=== PATIENT | male | born 1960 | race Caucasian/White ===

== ENCOUNTER 2017-07-22 07:52 | Outpatient (CLI) | payer OTHER ==
[~2017-07-22 07:52] MED LIST: LANTUS SUBCUT; LISI30TA4 PO; METF500T7 PO; MULT1TAB74 PO; SIMV20TA5 PO
[2017-07-22 08:37] LABS: BASOPHILS % (AUTO) 0.7 % (0-1); EOSINOPHILS # (AUTO) 0.2 X10'3 (0-0.9); EOSINOPHILS % (AUTO) 3.6 % (0-6); HEMATOCRIT 46.1 % (42.0-52.0); LYMPHOCYTES # (AUTO) 2.1 X10'3 (1.1-4.8); LYMPHOCYTES % (AUTO) 35.1 % (21-51); MEAN CORPUSCULAR HEMOGLOBIN 31.5 PG (27.0-31.0); MEAN CORPUSCULAR HGB CONC 34.7 % (33.0-36.5); MEAN CORPUSCULAR VOLUME 90.8 FL (78-98); MEAN PLATELET VOLUME 8.1 FL (7.4-10.4); MONOCYTES # (AUTO) 0.5 X10'3 (0-0.9); MONOCYTES % (AUTO) 8.2 % (2-12); NEUTROPHILS # (AUTO) 3.2 X10'3 (1.8-7.7); NEUTROPHILS % (AUTO) 52.4 % (42-75); PLATELET COUNT 205 X10'3 (140-440); RED BLOOD COUNT 5.07 X10'6 (4.70-6.10); WHITE BLOOD COUNT 6.1 X10'3 (4.5-11.0)
[2017-07-22 08:44] LABS: HEMOGLOBIN A1C 6.2 % (4.5-6.2)
[2017-07-22 08:58] LABS: ALANINE AMINOTRANSFERASE 39 U/L (12-78); ALBUMIN 3.8 G/DL (3.4-5.0); ALKALINE PHOSPHATASE 68 IU/L (46-116); ANION GAP 10 (8-16); ASPARTATE AMINO TRANSFERASE 24 U/L (10-37); BILIRUBIN,TOTAL 0.7 MG/DL (0.1-1.0); BLOOD UREA NITROGEN 20 MG/DL (7-18); BUN/CREATININE RATIO 15.5 (5.4-32.0); CALCIUM 9.4 MG/DL (8.5-10.1); CHLORIDE 106 MMOL/L (99-107); CHOL/HDL RATIO 5.9 (0.00-4.99); CHOLESTEROL 254 MG/DL (0-200); CREATININE 1.29 MG/DL (0.60-1.10); GLUCOSE 100 MG/DL (70-104); HDL CHOLESTEROL 43 MG/DL (35-60); LDL CHOLESTEROL 180 MG/DL (50-100); POTASSIUM 4.6 MMOL/L (3.5-5.1); SODIUM 143 MMOL/L (135-145); TOTAL PROTEIN 7.5 G/DL (6.4-8.2); TRIGLYCERIDES 149 MG/DL (20-135); eGFR 57 ML/MIN
[2017-07-23 13:30] LABS: MICROALB/CRT, RATIO <1.8 mg/g creat (0.0-30.0)
== END 2017-07-22 23:59 | disposition home or self-care (01) ==
LOC: LAB 07:52
PROVIDERS: ATTEND Physician Assistant
DX: E11.9 Type 2 diabetes mellitus without complications (principal); E78.5 Hyperlipidemia, unspecified; M54.5 Low back pain; I10 Essential (primary) hypertension
CPT/HCPCS: 36415; 80053; 80061; 82043; 82570; 83036; 84443; 85025

== ENCOUNTER 2017-10-17 08:46 | Emergency (ER) | payer OTHER ==
[~2017-10-17] VITALS: Ht 190.5 cm; Wt 116.9 kg
[2017-10-17 08:50] VITALS: BP 121/84
[2017-10-17] MEDS ORDERED: CEPH500C5 PO (10:34)
[2017-10-17] MEDS ORDERED: BACDS PO (10:34)
== END 2017-10-17 11:00 | disposition home or self-care (01) ==
LOC: ER 08:47
DX: L03.113 Cellulitis of right upper limb (principal); I10 Essential (primary) hypertension; E11.9 Type 2 diabetes mellitus without complications; E78.00 Pure hypercholesterolemia, unspecified; Z79.4 Long term (current) use of insulin; Z79.84 Long term (current) use of oral hypoglycemic drugs; Z79.899 Other long term (current) drug therapy
CPT/HCPCS: 99283

== ENCOUNTER 2017-10-23 07:43 | Outpatient (CLI) | payer OTHER ==
[~2017-10-23 07:43] MED LIST changes: +BACDS PO; +CEPH500C5 PO
[2017-10-23 08:21] LABS: CHOLESTEROL 149 MG/DL (0-200); HDL CHOLESTEROL 37 MG/DL (35-60); LDL CHOLESTEROL 82 MG/DL (50-100); TRIGLYCERIDES 236 MG/DL (20-135)
[2017-10-23 08:33] LABS: HEMOGLOBIN A1C 5.5 % (4.5-6.2)
== END 2017-10-23 23:59 | disposition home or self-care (01) ==
LOC: LAB 07:43
PROVIDERS: ATTEND Physician Assistant
DX: Z12.5 Encounter for screening for malignant neoplasm of prostate (principal); E11.9 Type 2 diabetes mellitus without complications; E78.5 Hyperlipidemia, unspecified; I10 Essential (primary) hypertension
CPT/HCPCS: 36415; 80061; 83036; 84153; 84154

== ENCOUNTER 2017-11-20 17:02 | Emergency (ER) | payer OTHER ==
[~2017-11-20] VITALS: Ht 190.5 cm; Wt 113.6 kg
[~2017-11-20 17:02] MED LIST changes: -BACDS PO
[2017-11-20 17:10] VITALS: BP 136/77
[2017-11-20] MEDS ORDERED: AMOX-422 PO (17:42)
[2017-11-20] MEDS ORDERED: amox tr/potassium clavulanate 875/125mg TAB PO ONE (17:45)
== END 2017-11-20 17:58 | disposition home or self-care (01) ==
LOC: ER 17:02
DX: L03.113 Cellulitis of right upper limb (principal); L03.114 Cellulitis of left upper limb; E78.00 Pure hypercholesterolemia, unspecified; I10 Essential (primary) hypertension; E11.9 Type 2 diabetes mellitus without complications; Z79.4 Long term (current) use of insulin; Z79.84 Long term (current) use of oral hypoglycemic drugs; Z79.899 Other long term (current) drug therapy
CPT/HCPCS: 99283

== ENCOUNTER 2018-01-06 07:53 | Day surgery (SDC) | payer OTHER ==
[~2018-01-06] VITALS: Ht 190.5 cm; Wt 113.6 kg
[2018-01-06 07:50] VITALS: BP 139/87
[2018-01-06 08:05] VITALS: BP 134/84
[2018-01-06] MEDS ORDERED: fentaNYL/PF 50MCG/1 ML 2ML syringe ONE (08:08)
[2018-01-06] MEDS ORDERED: MIDAZolam 5mg/5ml vial ONE (08:08)
[2018-01-06] MEDS ORDERED: METF-436 PO (08:12)
[2018-01-06] MEDS ORDERED: INSU100V9 SQ (08:44)
[2018-01-06 10:08] VITALS: BP 121/60
[2018-01-06 10:18] VITALS: BP 107/62
[2018-01-06 10:28] VITALS: BP 111/72
[2018-01-06 10:35] VITALS: BP 112/65
== END 2018-01-06 10:38 | disposition home or self-care (01) ==
LOC: GI LAB 07:53
PROVIDERS: ATTEND Internal Medicine Gastroenterology
DX: Z12.11 Encounter for screening for malignant neoplasm of colon (principal); D12.4 Benign neoplasm of descending colon; D12.3 Benign neoplasm of transverse colon; K64.8 Other hemorrhoids; I10 Essential (primary) hypertension; E11.9 Type 2 diabetes mellitus without complications; Z86.010 Personal history of colon polyps; Z79.4 Long term (current) use of insulin; Z79.84 Long term (current) use of oral hypoglycemic drugs; Z79.899 Other long term (current) drug therapy; Z98.890 Other specified postprocedural states; Z81.8 Family history of other mental and behavioral disorders
CPT/HCPCS: 45380; 45385; 99152; 99153; J2250; J3010; J7030; A4620

== ENCOUNTER 2018-01-24 11:53 | Outpatient (CLI) | payer OTHER ==
[~2018-01-24 11:53] MED LIST changes: -CEPH500C5 PO; +INSU100V9 SQ; -LANTUS SUBCUT; +METF-436 PO; -METF500T7 PO
[2018-01-24 12:52] LABS: BASOPHILS % (AUTO) 0.5 % (0-1); EOSINOPHILS # (AUTO) 0.2 X10'3 (0-0.9); EOSINOPHILS % (AUTO) 3.1 % (0-6); HEMATOCRIT 47.6 % (42.0-52.0); HEMOGLOBIN 15.8 g/dl (14.0-17.9); LYMPHOCYTES # (AUTO) 2.1 X10'3 (1.1-4.8); LYMPHOCYTES % (AUTO) 30.6 % (21-51); MEAN CORPUSCULAR HGB CONC 33.2 % (33.0-36.5); MEAN CORPUSCULAR VOLUME 93.4 FL (78-98); MEAN PLATELET VOLUME 8.3 FL (7.4-10.4); MONOCYTES # (AUTO) 0.5 X10'3 (0-0.9); MONOCYTES % (AUTO) 7.4 % (2-12); NEUTROPHILS # (AUTO) 3.9 X10'3 (1.8-7.7); NEUTROPHILS % (AUTO) 58.4 % (42-75); PLATELET COUNT 228 X10'3 (140-440); RED BLOOD COUNT 5.09 X10'6 (4.70-6.10); RED CELL DISTRIBUTION WIDTH 13.1 % (11.5-14.5); WHITE BLOOD COUNT 6.7 X10'3 (4.5-11.0)
[2018-01-24 13:14] LABS: HEMOGLOBIN A1C 5.8 % (4.5-6.2)
[2018-01-24 13:19] LABS: ALANINE AMINOTRANSFERASE 55 U/L (12-78); ALBUMIN 3.9 G/DL (3.4-5.0); ALBUMIN/GLOBULIN RATIO 1.1 (1.1-1.5); ALKALINE PHOSPHATASE 66 IU/L (46-116); ANION GAP 11 (8-16); ASPARTATE AMINO TRANSFERASE 31 U/L (10-37); BILIRUBIN,TOTAL 0.7 MG/DL (0.1-1.0); BLOOD UREA NITROGEN 17 MG/DL (7-18); BUN/CREATININE RATIO 13.9 (5.4-32.0); CALCIUM 9.1 MG/DL (8.5-10.1); CHLORIDE 105 MMOL/L (99-107); CREATININE 1.22 MG/DL (0.60-1.10); GLUCOSE 103 MG/DL (70-104); POTASSIUM 4.1 MMOL/L (3.5-5.1); SODIUM 142 MMOL/L (135-145); TOTAL CARBON DIOXIDE 26.1 MMOL/L (24-32); TOTAL PROTEIN 7.4 G/DL (6.4-8.2); eGFR 61 ML/MIN
[2018-01-26 09:14] LABS: MICROALB/CRT, RATIO <1.8 mg/g creat (0.0-30.0)
== END 2018-01-24 23:59 | disposition home or self-care (01) ==
LOC: LAB 11:53
PROVIDERS: ATTEND Physician Assistant
DX: E11.9 Type 2 diabetes mellitus without complications (principal); E78.5 Hyperlipidemia, unspecified; I10 Essential (primary) hypertension; Z79.84 Long term (current) use of oral hypoglycemic drugs; Z79.4 Long term (current) use of insulin
CPT/HCPCS: 36415; 80053; 82043; 82570; 83036; 84443; 85025

== ENCOUNTER 2018-04-15 06:39 | Emergency (ER) | payer OTHER ==
[~2018-04-15] VITALS: Ht 190.5 cm; Wt 120.3 kg
[2018-04-15] MEDS ORDERED: ondansetron/PF 4mg/2ml inj IV ONE (07:15)
[2018-04-15] MEDS ORDERED: normal saline 1000ML IV soln IVB ONE (07:15)
[2018-04-15 07:30] LABS: BASOPHILS % (AUTO) 0.7 % (0-1); EOSINOPHILS # (AUTO) 0.3 X10'3 (0-0.9); EOSINOPHILS % (AUTO) 4.3 % (0-6); HEMATOCRIT 45.8 % (42.0-52.0); HEMOGLOBIN 15.3 g/dl (14.0-17.9); LYMPHOCYTES % (AUTO) 32.8 % (21-51); MEAN CORPUSCULAR HEMOGLOBIN 30.7 PG (27.0-31.0); MEAN CORPUSCULAR HGB CONC 33.3 % (33.0-36.5); MEAN CORPUSCULAR VOLUME 92.1 FL (78-98); MEAN PLATELET VOLUME 7.9 FL (7.4-10.4); MONOCYTES # (AUTO) 0.6 X10'3 (0-0.9); MONOCYTES % (AUTO) 9.2 % (2-12); NEUTROPHILS # (AUTO) 3.3 X10'3 (1.8-7.7); PLATELET COUNT 206 X10'3 (140-440); RED BLOOD COUNT 4.97 X10'6 (4.70-6.10); WHITE BLOOD COUNT 6.2 X10'3 (4.5-11.0)
[2018-04-15 07:47] LABS: ALANINE AMINOTRANSFERASE 45 U/L (12-78); ALBUMIN 3.4 G/DL (3.4-5.0); ALKALINE PHOSPHATASE 65 IU/L (46-116); ANION GAP 12 (8-16); ASPARTATE AMINO TRANSFERASE 22 U/L (10-37); BILIRUBIN,TOTAL 0.5 MG/DL (0.1-1.0); BLOOD UREA NITROGEN 23 MG/DL (7-18); BUN/CREATININE RATIO 18.4 (5.4-32.0); CALCIUM 9.2 MG/DL (8.5-10.1); CHLORIDE 104 MMOL/L (99-107); CREATININE 1.25 MG/DL (0.60-1.10); GLUCOSE 116 MG/DL (70-104); POTASSIUM 4.3 MMOL/L (3.5-5.1); SODIUM 140 MMOL/L (135-145); TOTAL CARBON DIOXIDE 24.2 MMOL/L (24-32); TOTAL PROTEIN 6.9 G/DL (6.4-8.2); eGFR 59 ML/MIN
[2018-04-15] MEDS ORDERED: ketorolac trometh inj. 60 MG/2 ML VIAL IM ONE (08:40)
[2018-04-15] MEDS ORDERED: ONDA4TAB6 PO (08:43)
[2018-04-15] MEDS ORDERED: HYDR-4353 PO (08:43)
[2018-04-15] MEDS ORDERED: KETO10TA2 PO (08:43)
[2018-04-15] MEDS ORDERED: TAM75C PO (08:46)
[2018-04-15 08:57] VITALS: BP 111/69
== END 2018-04-15 08:58 | disposition home or self-care (01) ==
LOC: ER 06:40
DX: B34.8 Other viral infections of unspecified site (principal); E78.00 Pure hypercholesterolemia, unspecified; I10 Essential (primary) hypertension; E11.9 Type 2 diabetes mellitus without complications; Z79.4 Long term (current) use of insulin; Z79.84 Long term (current) use of oral hypoglycemic drugs; Z79.899 Other long term (current) drug therapy
CPT/HCPCS: 36415; 71045; 80053; 82948; 85025; 87502; 87503; 96361; 96372; 96374; 99284; J1885; J2405; J7030

== ENCOUNTER 2018-04-17 12:18 | Outpatient (CLI) | payer OTHER ==
[~2018-04-17 12:18] MED LIST changes: +HYDR-4353 PO; +KETO10TA2 PO; +ONDA4TAB6 PO; +TAM75C PO
== END 2018-04-17 23:59 | disposition home or self-care (01) ==
LOC: RAD 12:18
PROVIDERS: ATTEND Physician Assistant
DX: M25.811 Other specified joint disorders, right shoulder (principal); M25.812 Other specified joint disorders, left shoulder; I10 Essential (primary) hypertension; E11.9 Type 2 diabetes mellitus without complications; Z90.89 Acquired absence of other organs; Z79.4 Long term (current) use of insulin; Z79.899 Other long term (current) drug therapy
CPT/HCPCS: 73030

== ENCOUNTER 2018-07-25 07:41 | Outpatient (CLI) | payer OTHER ==
[~2018-07-25 07:41] MED LIST changes: -HYDR-4353 PO; -TAM75C PO
[2018-07-25 10:02] LABS: BASOPHILS # (AUTO) 0.1 X10'3 (0-0.2); EOSINOPHILS # (AUTO) 0.2 X10'3 (0-0.9); EOSINOPHILS % (AUTO) 1.7 % (0-6); HEMATOCRIT 47.9 % (42.0-52.0); HEMOGLOBIN 16.1 g/dl (14.0-17.9); LYMPHOCYTES % (AUTO) 21.8 % (21-51); MEAN CORPUSCULAR HGB CONC 33.6 g/dL (33.0-36.5); MEAN CORPUSCULAR VOLUME 92.4 FL (78-98); MONOCYTES # (AUTO) 0.7 X10'3 (0-0.9); MONOCYTES % (AUTO) 7.9 % (2-12); NEUTROPHILS # (AUTO) 6.3 X10'3 (1.8-7.7); NEUTROPHILS % (AUTO) 67.6 % (42-75); PLATELET COUNT 228 X10'3 (140-440); RED BLOOD COUNT 5.19 X10'6 (4.70-6.10); RED CELL DISTRIBUTION WIDTH 13.3 % (11.5-14.5); WHITE BLOOD COUNT 9.4 X10'3 (4.5-11.0)
[2018-07-25 10:27] LABS: ALANINE AMINOTRANSFERASE 48 U/L (12-78); ALBUMIN/GLOBULIN RATIO 1.1 (1.1-1.5); ALKALINE PHOSPHATASE 75 IU/L (46-116); ANION GAP 8 (8-16); ASPARTATE AMINO TRANSFERASE 21 U/L (10-37); BILIRUBIN,TOTAL 0.6 MG/DL (0.1-1.0); BLOOD UREA NITROGEN 20 MG/DL (7-18); BUN/CREATININE RATIO 15.9 (5.4-32.0); CALCIUM 9.9 MG/DL (8.5-10.1); CHLORIDE 106 MMOL/L (99-107); CHOL/HDL RATIO 3.5 (0.00-4.99); CHOLESTEROL 146 MG/DL (0-200); CREATININE 1.26 MG/DL (0.60-1.10); GLUCOSE 117 MG/DL (70-104); HDL CHOLESTEROL 42 MG/DL (35-60); LDL CHOLESTEROL 84 MG/DL (50-100); POTASSIUM 4.6 MMOL/L (3.5-5.1); SODIUM 141 MMOL/L (135-145); TOTAL CARBON DIOXIDE 27.5 MMOL/L (24-32); TOTAL PROTEIN 7.7 G/DL (6.4-8.2); TRIGLYCERIDES 152 MG/DL (20-135); eGFR 58 ML/MIN
== END 2018-07-25 23:59 | disposition home or self-care (01) ==
LOC: LAB 07:41
PROVIDERS: ATTEND Physician Assistant
DX: E11.9 Type 2 diabetes mellitus without complications (principal); E78.5 Hyperlipidemia, unspecified; R97.20 Elevated prostate specific antigen [PSA]; I10 Essential (primary) hypertension; Z79.899 Other long term (current) drug therapy
CPT/HCPCS: 36415; 80053; 80061; 83036; 84153; 84443; 85025; 87088

== ENCOUNTER 2018-10-28 10:12 | Emergency (ER) | payer OTHER ==
[~2018-10-28] VITALS: Ht 190.5 cm; Wt 113.6 kg
[2018-10-28] MEDS ORDERED: TETanus/Pertussis (Acell)/Diphther VAC/PF (Tdap-Adult) 0.5ml syringe IM ONE (11:30)
[2018-10-28 11:44] VITALS: BP 131/85
[2018-10-28] MEDS ORDERED: lidocaine 1%/epinephrine 1:100,000 injection 50ml vial ONE (14:00)
[2018-11-08] MEDS ORDERED: CEPH250T PO (22:58)
== END 2018-10-28 11:45 | disposition home or self-care (01) ==
LOC: ER 10:13
DX: S91.312A Laceration without foreign body, left foot, initial encounter (principal); E78.00 Pure hypercholesterolemia, unspecified; I10 Essential (primary) hypertension; E11.9 Type 2 diabetes mellitus without complications; Z79.84 Long term (current) use of oral hypoglycemic drugs; Z79.4 Long term (current) use of insulin; Z79.899 Other long term (current) drug therapy; W54.1XXA Struck by dog, initial encounter; Y93.01 Activity, walking, marching and hiking; Y92.488 Other paved roadways as the place of occurrence of the external cause; Y99.8 Other external cause status
CPT/HCPCS: 12001; 90471; 99283

== ENCOUNTER → 2018-11-08 | Emergency (ER) | payer OTHER ==
[~2018-11-08] VITALS: Ht 190.5 cm; Wt 121.0 kg
[~2018-11-08] MED LIST changes: +CEPH250T PO; +LIDOcaine/epinephrine TOPICAL 5 ML BTL TOP ONE; +LIDOcaine/epinephrine TOPICAL 5 ML BTL TOP STA
[2018-11-08 22:42] VITALS: BP 122/88
== END | disposition home or self-care (01) ==
LOC: ER 22:39
DX: S91.312D Laceration without foreign body, left foot, subsequent encounter (principal); E78.00 Pure hypercholesterolemia, unspecified; I10 Essential (primary) hypertension; E11.9 Type 2 diabetes mellitus without complications; Z48.02 Encounter for removal of sutures; Z79.899 Other long term (current) drug therapy; Z79.2 Long term (current) use of antibiotics; Z79.4 Long term (current) use of insulin; W54.0XXD Bitten by dog, subsequent encounter
CPT/HCPCS: 99283

== ENCOUNTER 2018-11-28 09:21 | Outpatient (CLI) | payer OTHER ==
[~2018-11-28 09:21] MED LIST changes: -CEPH250T PO; -LIDOcaine/epinephrine TOPICAL 5 ML BTL TOP ONE; -LIDOcaine/epinephrine TOPICAL 5 ML BTL TOP STA
== END 2018-11-28 23:59 | disposition home or self-care (01) ==
LOC: LAB 09:21
PROVIDERS: ATTEND Physician Assistant
DX: E11.9 Type 2 diabetes mellitus without complications (principal); I10 Essential (primary) hypertension
CPT/HCPCS: 36415; 83036

== ENCOUNTER 2019-04-28 07:36 | Outpatient (CLI) | payer OTHER ==
[~2019-04-28 07:36] MED LIST changes: +SIMV-42 PO; -SIMV20TA5 PO
[2019-04-28 08:36] LABS: BASOPHILS % (AUTO) 0.8 % (0-1); EOSINOPHILS # (AUTO) 0.3 X10'3 (0-0.9); EOSINOPHILS % (AUTO) 4.5 % (0-6); HEMATOCRIT 46.8 % (42.0-52.0); HEMOGLOBIN 15.9 g/dl (14.0-17.9); MEAN CORPUSCULAR HEMOGLOBIN 31.4 PG (27.0-31.0); MEAN CORPUSCULAR VOLUME 92.3 FL (78-98); MEAN PLATELET VOLUME 8.6 FL (7.4-10.4); MONOCYTES # (AUTO) 0.6 X10'3 (0-0.9); MONOCYTES % (AUTO) 9.4 % (2-12); NEUTROPHILS # (AUTO) 3.4 X10'3 (1.8-7.7); NEUTROPHILS % (AUTO) 54.3 % (42-75); PLATELET COUNT 194 X10'3 (140-440); RED BLOOD COUNT 5.06 X10'6 (4.70-6.10); RED CELL DISTRIBUTION WIDTH 13.2 % (11.5-14.5); WHITE BLOOD COUNT 6.3 X10'3 (4.5-11.0)
[2019-04-28 14:38] LABS: ALANINE AMINOTRANSFERASE 44 U/L (12-78); ALBUMIN 3.8 G/DL (3.4-5.0); ALBUMIN/GLOBULIN RATIO 1.1 (1.1-1.5); ALKALINE PHOSPHATASE 69 IU/L (46-116); ANION GAP 9 (8-16); ASPARTATE AMINO TRANSFERASE 28 U/L (10-37); BILIRUBIN,TOTAL 0.6 MG/DL (0.1-1.0); BLOOD UREA NITROGEN 18 MG/DL (7-18); BUN/CREATININE RATIO 14.4 (5.4-32.0); CALCIUM 9.4 MG/DL (8.5-10.1); CHLORIDE 107 MMOL/L (99-107); CREATININE 1.25 MG/DL (0.60-1.10); GLUCOSE 113 MG/DL (70-104); POTASSIUM 4.4 MMOL/L (3.5-5.1); SODIUM 142 MMOL/L (135-145); TOTAL CARBON DIOXIDE 25.9 MMOL/L (24-32); TOTAL PROTEIN 7.2 G/DL (6.4-8.2); eGFR 59 ML/MIN
== END 2019-04-28 23:59 | disposition home or self-care (01) ==
LOC: LAB 07:36
PROVIDERS: ATTEND Physician Assistant
DX: E11.9 Type 2 diabetes mellitus without complications (principal); G47.00 Insomnia, unspecified
CPT/HCPCS: 36415; 80053; 83036; 85025

== ENCOUNTER 2019-08-12 08:11 | Outpatient (CLI) | payer OTHER ==
[2019-08-12 12:22] LABS: BASOPHILS % (AUTO) 0.6 % (0-1); EOSINOPHILS # (AUTO) 0.2 X10'3 (0-0.9); EOSINOPHILS % (AUTO) 3.1 % (0-6); HEMATOCRIT 47.7 % (42.0-52.0); HEMOGLOBIN 16.2 g/dl (14.0-17.9); LYMPHOCYTES # (AUTO) 2.1 X10'3 (1.1-4.8); LYMPHOCYTES % (AUTO) 26.3 % (21-51); MEAN CORPUSCULAR HEMOGLOBIN 31.5 PG (27.0-31.0); MEAN CORPUSCULAR VOLUME 92.6 FL (78-98); MEAN PLATELET VOLUME 8.3 FL (7.4-10.4); MONOCYTES # (AUTO) 0.6 X10'3 (0-0.9); MONOCYTES % (AUTO) 7.2 % (2-12); NEUTROPHILS % (AUTO) 62.8 % (42-75); PLATELET COUNT 215 X10'3 (140-440); RED BLOOD COUNT 5.15 X10'6 (4.70-6.10); RED CELL DISTRIBUTION WIDTH 13.4 % (11.5-14.5); WHITE BLOOD COUNT 7.9 X10'3 (4.5-11.0)
[2019-08-12 12:25] LABS: HEMOGLOBIN A1C 7.3 % (4.5-6.2)
[2019-08-12 12:39] LABS: ALANINE AMINOTRANSFERASE 66 U/L (12-78); ALBUMIN 3.9 G/DL (3.4-5.0); ALBUMIN/GLOBULIN RATIO 1.1 (1.1-1.5); ALKALINE PHOSPHATASE 74 IU/L (46-116); ANION GAP 8 (8-16); ASPARTATE AMINO TRANSFERASE 39 U/L (10-37); BILIRUBIN,TOTAL 0.8 MG/DL (0.1-1.0); BLOOD UREA NITROGEN 18 MG/DL (7-18); BUN/CREATININE RATIO 13.8 (5.4-32.0); CALCIUM 9.5 MG/DL (8.5-10.1); CHLORIDE 105 MMOL/L (99-107); CHOL/HDL RATIO 4.7 (0.00-4.99); CHOLESTEROL 177 MG/DL (0-200); GLUCOSE 130 MG/DL (70-104); HDL CHOLESTEROL 38 MG/DL (35-60); LDL CHOLESTEROL 107 MG/DL (50-100); POTASSIUM 4.3 MMOL/L (3.5-5.1); SODIUM 140 MMOL/L (135-145); TOTAL CARBON DIOXIDE 27.4 MMOL/L (24-32); TOTAL PROTEIN 7.6 G/DL (6.4-8.2); TRIGLYCERIDES 185 MG/DL (20-135); eGFR 56 ML/MIN
[2019-08-13 09:15] LABS: PSA, ULTRASENSITIVE W/O SERIAL 2.35 ng/mL (0.000-4.000)
== END 2019-08-12 23:59 | disposition home or self-care (01) ==
LOC: LAB 08:11
PROVIDERS: ATTEND Physician Assistant
DX: Z12.5 Encounter for screening for malignant neoplasm of prostate (principal); E11.9 Type 2 diabetes mellitus without complications; E78.5 Hyperlipidemia, unspecified; G47.00 Insomnia, unspecified
CPT/HCPCS: 36415; 80053; 80061; 82043; 82570; 83036; 84153; 84439; 84443; 85025

== ENCOUNTER 2019-08-23 07:33 | Emergency (ER) | payer OTHER ==
[~2019-08-23] VITALS: Ht 190.5 cm; Wt 118.2 kg
[2019-08-23 07:35] VITALS: BP 141/89
== END 2019-08-23 09:10 | disposition home or self-care (01) ==
LOC: EEVIPCON 07:34 → ER 07:34
DX: H61.21 Impacted cerumen, right ear (principal); E78.00 Pure hypercholesterolemia, unspecified; I10 Essential (primary) hypertension; E11.9 Type 2 diabetes mellitus without complications; Z79.4 Long term (current) use of insulin; Z79.899 Other long term (current) drug therapy
CPT/HCPCS: 42809; 69209; 69210; 99284

== ENCOUNTER 2020-01-13 07:42 | Emergency (ER) | payer OTHER ==
[~2020-01-13] VITALS: Ht 190.5 cm; Wt 72.7 kg
[~2020-01-13 07:42] MED LIST changes: +MULT-620 PO; -MULT1TAB74 PO
[2020-01-13 07:57] VITALS: BP 126/89
== END 2020-01-13 09:16 | disposition home or self-care (01) ==
LOC: ER 07:43 → EEVIPCON 07:43 → ER 09:16
DX: J98.8 Other specified respiratory disorders (principal); B97.21 SARS-associated coronavirus as the cause of diseases classified elsewhere; E78.00 Pure hypercholesterolemia, unspecified; I10 Essential (primary) hypertension; E11.9 Type 2 diabetes mellitus without complications; Z79.4 Long term (current) use of insulin; Z79.899 Other long term (current) drug therapy
CPT/HCPCS: 36415; 99281

== ENCOUNTER 2020-02-02 13:25 | Outpatient (CLI) | payer BC, OTHER ==
[2020-02-02 14:23] LABS: HEMOGLOBIN A1C 10.2 % (4.5-6.2)
[2020-02-02 14:26] LABS: ALANINE AMINOTRANSFERASE 56 U/L (12-78); ALBUMIN 3.3 G/DL (3.4-5.0); ALBUMIN/GLOBULIN RATIO 0.8 (1.1-1.5); ALKALINE PHOSPHATASE 78 IU/L (46-116); ANION GAP 10 (8-16); ASPARTATE AMINO TRANSFERASE 45 U/L (10-37); BILIRUBIN,TOTAL 0.5 MG/DL (0.1-1.0); BLOOD UREA NITROGEN 12 MG/DL (7-18); BUN/CREATININE RATIO 9.5 (5.4-32.0); CHLORIDE 105 MMOL/L (99-107); CREATININE 1.26 MG/DL (0.60-1.10); GLUCOSE 130 MG/DL (70-104); POTASSIUM 4.3 MMOL/L (3.5-5.1); SODIUM 142 MMOL/L (135-145); TOTAL CARBON DIOXIDE 26.8 MMOL/L (24-32); TOTAL PROTEIN 7.5 G/DL (6.4-8.2); eGFR 58 ML/MIN
== END 2020-02-02 23:59 | disposition home or self-care (01) ==
LOC: LAB 13:25
PROVIDERS: ATTEND Physician Assistant
DX: E11.9 Type 2 diabetes mellitus without complications (principal); R74.01 Elevation of levels of liver transaminase levels
CPT/HCPCS: 36415; 80053; 83036

== ENCOUNTER 2020-05-06 09:37 | Outpatient (CLI) | payer BC, OTHER ==
[2020-05-06 10:41] LABS: BASOPHILS % (AUTO) 0.8 % (0-1); EOSINOPHILS # (AUTO) 0.3 X10'3 (0-0.9); EOSINOPHILS % (AUTO) 4.6 % (0-6); HEMATOCRIT 45.2 % (42.0-52.0); HEMOGLOBIN 15.2 g/dl (14.0-17.9); LYMPHOCYTES % (AUTO) 34.1 % (21-51); MEAN CORPUSCULAR HEMOGLOBIN 31.5 PG (27.0-31.0); MEAN CORPUSCULAR HGB CONC 33.7 g/dL (33.0-36.5); MEAN CORPUSCULAR VOLUME 93.6 FL (78-98); MEAN PLATELET VOLUME 8.2 FL (7.4-10.4); MONOCYTES # (AUTO) 0.6 X10'3 (0-0.9); MONOCYTES % (AUTO) 9.8 % (2-12); NEUTROPHILS % (AUTO) 50.7 % (42-75); PLATELET COUNT 220 X10'3 (140-440); RED BLOOD COUNT 4.83 X10'6 (4.70-6.10); RED CELL DISTRIBUTION WIDTH 12.5 % (11.5-14.5); WHITE BLOOD COUNT 5.9 X10'3 (4.5-11.0)
[2020-05-06 11:04] LABS: ALANINE AMINOTRANSFERASE 42 U/L (12-78); ALBUMIN 3.7 G/DL (3.4-5.0); ALKALINE PHOSPHATASE 67 IU/L (46-116); ANION GAP 4 (8-16); ASPARTATE AMINO TRANSFERASE 36 U/L (10-37); BILIRUBIN,TOTAL 0.6 MG/DL (0.1-1.0); BLOOD UREA NITROGEN 24 MG/DL (7-18); BUN/CREATININE RATIO 17.9 (5.4-32.0); CALCIUM 9.1 MG/DL (8.5-10.1); CHLORIDE 106 MMOL/L (99-107); CHOL/HDL RATIO 3.2 (0.00-4.99); CHOLESTEROL 135 MG/DL (0-200); CREATININE 1.34 MG/DL (0.60-1.10); GLUCOSE 121 MG/DL (70-104); HDL CHOLESTEROL 42 MG/DL (35-60); HEMOGLOBIN A1C 6.9 % (4.5-6.2); LDL CHOLESTEROL 79 MG/DL (50-100); POTASSIUM 4.5 MMOL/L (3.5-5.1); SODIUM 139 MMOL/L (135-145); TOTAL CARBON DIOXIDE 28.7 MMOL/L (24-32); TOTAL PROTEIN 7.3 G/DL (6.4-8.2); TRIGLYCERIDES 76 MG/DL (20-135); eGFR 54 ML/MIN
== END 2020-05-06 23:59 | disposition home or self-care (01) ==
LOC: LAB 09:37
PROVIDERS: ATTEND Physician Assistant
DX: E11.9 Type 2 diabetes mellitus without complications (principal); E78.5 Hyperlipidemia, unspecified
CPT/HCPCS: 36415; 80053; 80061; 82043; 82570; 83036; 84439; 84443; 85025

== ENCOUNTER 2020-06-02 13:22 | Outpatient (CLI) | payer BC, OTHER | END 2020-06-02 23:59 | disposition home or self-care (01) | LOC: RAD 13:22 | PROVIDERS: ATTEND Physician Assistant | DX: M19.011 Primary osteoarthritis, right shoulder (principal) | CPT/HCPCS: 73030 ==

== ENCOUNTER 2020-07-19 22:57 | Emergency (ER) | payer BC, OTHER ==
[~2020-07-19] VITALS: Ht 190.5 cm; Wt 118.2 kg
[2020-07-19 23:13] VITALS: BP 117/86
[2020-07-20] MEDS ORDERED: ibuprofen tablet 400 MG TABLET PO ONE (00:05)
== END 2020-07-20 00:40 | disposition home or self-care (01) ==
LOC: ER 22:58
DX: S49.92XA Unspecified injury of left shoulder and upper arm, initial encounter (principal); E78.00 Pure hypercholesterolemia, unspecified; I10 Essential (primary) hypertension; E11.9 Type 2 diabetes mellitus without complications; Z79.4 Long term (current) use of insulin; Z79.899 Other long term (current) drug therapy; X58.XXXA Exposure to other specified factors, initial encounter; Y93.89 Activity, other specified; Y92.89 Other specified places as the place of occurrence of the external cause; Y99.8 Other external cause status
CPT/HCPCS: 99282

== ENCOUNTER → 2020-08-06 | Outpatient (CLI) | payer BC, OTHER ==
[2020-08-06 11:49] LABS: ALANINE AMINOTRANSFERASE 39 U/L (12-78); ALBUMIN 3.9 G/DL (3.4-5.0); ALBUMIN/GLOBULIN RATIO 1.1 (1.1-1.5); ALKALINE PHOSPHATASE 83 IU/L (46-116); ANION GAP 9 (8-16); ASPARTATE AMINO TRANSFERASE 26 U/L (10-37); BILIRUBIN,TOTAL 0.9 MG/DL (0.1-1.0); BLOOD UREA NITROGEN 19 MG/DL (7-18); CALCIUM 9.3 MG/DL (8.5-10.1); CHLORIDE 104 MMOL/L (99-107); CREATININE 1.36 MG/DL (0.60-1.10); GLUCOSE 150 MG/DL (70-104); HEMOGLOBIN A1C 7.1 % (4.5-6.2); POTASSIUM 4.7 MMOL/L (3.5-5.1); SODIUM 141 MMOL/L (135-145); TOTAL CARBON DIOXIDE 28.4 MMOL/L (24-32); TOTAL PROTEIN 7.6 G/DL (6.4-8.2); eGFR 53 ML/MIN
== END | disposition home or self-care (01) ==
LOC: LAB 11:15
PROVIDERS: ATTEND Physician Assistant
DX: Z12.5 Encounter for screening for malignant neoplasm of prostate (principal); E11.9 Type 2 diabetes mellitus without complications; E78.5 Hyperlipidemia, unspecified; G47.33 Obstructive sleep apnea (adult) (pediatric)
CPT/HCPCS: 36415; 80053; 83036; 84153; 84154

== ENCOUNTER 2020-10-28 22:34 | Emergency (ER) | payer BC, OTHER ==
[~2020-10-28] VITALS: Ht 190.5 cm; Wt 113.6 kg
[2020-10-28] MEDS ORDERED: normal saline 1000ML IV soln IV ONE (22:50)
[2020-10-28] MEDS ORDERED: insulin regular, human 10 units/0.1 ml syringe IV ONE (22:50)
[2020-10-28 23:27] LABS: BASOPHILS # (AUTO) 0.1 X10'3 (0-0.2); BASOPHILS % (AUTO) 1.2 % (0-1); EOSINOPHILS # (AUTO) 0.1 X10'3 (0-0.9); EOSINOPHILS % (AUTO) 2.2 % (0-6); HEMATOCRIT 46.7 % (42.0-52.0); HEMOGLOBIN 15.9 g/dl (14.0-17.9); LYMPHOCYTES % (AUTO) 30.5 % (21-51); MEAN CORPUSCULAR HEMOGLOBIN 31.7 PG (27.0-31.0); MEAN CORPUSCULAR HGB CONC 34.1 g/dL (33.0-36.5); MEAN CORPUSCULAR VOLUME 93.2 FL (78-98); MEAN PLATELET VOLUME 9.2 FL (7.4-10.4); MONOCYTES # (AUTO) 0.7 X10'3 (0-0.9); MONOCYTES % (AUTO) 9.8 % (2-12); NEUTROPHILS # (AUTO) 3.8 X10'3 (1.8-7.7); NEUTROPHILS % (AUTO) 56.3 % (42-75); PLATELET COUNT 213 X10'3 (140-440); RED BLOOD COUNT 5.01 X10'6 (4.70-6.10); RED CELL DISTRIBUTION WIDTH 12.8 % (11.5-14.5); WHITE BLOOD COUNT 6.7 X10'3 (4.5-11.0)
[2020-10-28 23:50] LABS: CLARITY,URINE CLEAR (Clear); COLOR,URINE YELLOW (Yellow); GLUCOSE, URINE >=1000 mg/dl (Neg); KETONES,URINE NEGATIVE (Neg); LEUKOCYTE ESTERASE ,URINE NEGATIVE (Neg); NITRITES, URINE NEGATIVE (Neg); OCCULT BLOOD,URINE NEGATIVE (Neg); PROTEIN,URINE NEGATIVE (Neg); UROBILINOGEN,URINE 0.2 E.U/dL (0.2-1.0)
[2020-10-28 23:51] LABS: UA COLLECTION TYPE CLN CATCH MIDSTREAM
[2020-10-28 23:54] LABS: ALANINE AMINOTRANSFERASE 40 U/L (12-78); ALBUMIN 3.8 G/DL (3.4-5.0); ALKALINE PHOSPHATASE 137 IU/L (46-116); ANION GAP 12 (8-16); ASPARTATE AMINO TRANSFERASE 19 U/L (10-37); BILIRUBIN,TOTAL 0.9 MG/DL (0.1-1.0); BLOOD UREA NITROGEN 29 MG/DL (7-18); BUN/CREATININE RATIO 19.6 (5.4-32.0); CALCIUM 9.4 MG/DL (8.5-10.1); CHLORIDE 96 MMOL/L (99-107); CREATININE 1.48 MG/DL (0.60-1.10); MAGNESIUM 2.5 MG/DL (1.5-2.4); POTASSIUM 4.5 MMOL/L (3.5-5.1); SODIUM 131 MMOL/L (135-145); TOTAL CARBON DIOXIDE 23.4 MMOL/L (24-32); TOTAL PROTEIN 7.5 G/DL (6.4-8.2); eGFR 48 ML/MIN
[2020-10-28 23:57] LABS: GLUCOSE 657 MG/DL (70-104)
[2020-10-28 23:58] LABS: BACTERIA,URINE NONE SEEN /HPF (Neg); MUCUS STRANDS NONE SEEN /LPF (Neg); RBC,URINE 0-2 /HPF (0-2); SQUAMOUS EPITHELIAL CELL,UR FEW /LPF (FEW); WBC,URINE 0-4 /HPF (0-4)
[2020-10-29 00:01] LABS: HEMOGLOBIN A1C > 14.0 % (4.5-6.2)
[2020-10-29] MEDS ORDERED: normal saline 1000ML IV soln IVB ONE (00:50)
[2020-10-29 01:13] VITALS: BP 124/75
--- NOTE | 2020-10-29 01:14 | NUR ---
Md Bazan notified BS [id number]
== END 2020-10-29 01:17 | disposition home or self-care (01) ==
LOC: ER 22:35
DX: E11.65 Type 2 diabetes mellitus with hyperglycemia (principal); R44.1 Visual hallucinations; E11.22 Type 2 diabetes mellitus with diabetic chronic kidney disease; I12.9 Hypertensive chronic kidney disease with stage 1 through stage 4 chronic kidney disease, or unspecified chronic kidney disease
CPT/HCPCS: 36415; 71045; 80053; 81001; 82948; 83036; 83605; 83735; 84145; 85025; 87040; 96361; 96374; 99284; J1815; J7030

== ENCOUNTER 2020-11-17 08:12 | Outpatient (CLI) | payer BC, OTHER ==
[2020-11-17 09:31] LABS: CHOL/HDL RATIO 3.4 (0.00-4.99); CHOLESTEROL 144 MG/DL (0-200); HDL CHOLESTEROL 42 MG/DL (35-60); TRIGLYCERIDES 145 MG/DL (20-135)
[2020-11-17 09:44] LABS: LDL CHOLESTEROL 84 MG/DL (50-100)
[2020-11-18 14:01] LABS: PSA, ULTRASENSITIVE W/O SERIAL 1.76 ng/mL (0.000-4.000)
== END 2020-11-17 23:59 | disposition home or self-care (01) ==
LOC: LAB 08:12
PROVIDERS: ATTEND Physician Assistant
DX: Z12.5 Encounter for screening for malignant neoplasm of prostate (principal); M19.012 Primary osteoarthritis, left shoulder; E11.65 Type 2 diabetes mellitus with hyperglycemia; E78.5 Hyperlipidemia, unspecified; R74.8 Abnormal levels of other serum enzymes
CPT/HCPCS: 36415; 73030; 80061; 82043; 82570; 84153

== ENCOUNTER 2021-02-01 13:33 | Outpatient (CLI) | payer BC, OTHER ==
[2021-02-01 14:28] LABS: ALANINE AMINOTRANSFERASE 24 U/L (12-78); ALBUMIN 3.6 G/DL (3.4-5.0); ALBUMIN/GLOBULIN RATIO 1.1 (1.1-1.5); ALKALINE PHOSPHATASE 60 IU/L (46-116); ANION GAP 8 (8-16); ASPARTATE AMINO TRANSFERASE 16 U/L (10-37); BILIRUBIN,TOTAL 0.7 MG/DL (0.1-1.0); BLOOD UREA NITROGEN 17 MG/DL (7-18); BUN/CREATININE RATIO 15.2 (5.4-32.0); CALCIUM 9.2 MG/DL (8.5-10.1); CHLORIDE 109 MMOL/L (99-107); CHOL/HDL RATIO 2.6 (0.00-4.99); CHOLESTEROL 121 MG/DL (0-200); CREATININE 1.12 MG/DL (0.60-1.10); GLUCOSE 97 MG/DL (70-104); HDL CHOLESTEROL 47 MG/DL (35-60); LDL CHOLESTEROL 64 MG/DL (50-100); POTASSIUM 4.1 MMOL/L (3.5-5.1); SODIUM 143 MMOL/L (135-145); TOTAL CARBON DIOXIDE 25.8 MMOL/L (24-32); TRIGLYCERIDES 100 MG/DL (20-135); eGFR 66 ML/MIN
[2021-02-01 14:30] LABS: BASOPHILS % (AUTO) 0.5 % (0-1); EOSINOPHILS # (AUTO) 0.1 X10'3 (0-0.9); EOSINOPHILS % (AUTO) 2.2 % (0-6); HEMATOCRIT 44.3 % (42.0-52.0); HEMOGLOBIN 15.1 g/dl (14.0-17.9); LYMPHOCYTES # (AUTO) 1.9 X10'3 (1.1-4.8); MEAN CORPUSCULAR HEMOGLOBIN 31.7 PG (27.0-31.0); MEAN PLATELET VOLUME 8.2 FL (7.4-10.4); MONOCYTES # (AUTO) 0.5 X10'3 (0-0.9); MONOCYTES % (AUTO) 8.4 % (2-12); NEUTROPHILS # (AUTO) 3.3 X10'3 (1.8-7.7); NEUTROPHILS % (AUTO) 55.9 % (42-75); PLATELET COUNT 203 X10'3 (140-440); RED BLOOD COUNT 4.76 X10'6 (4.70-6.10); WHITE BLOOD COUNT 5.9 X10'3 (4.5-11.0)
[2021-02-01 14:47] LABS: HEMOGLOBIN A1C 7.5 % (4.5-6.2)
[2021-02-03 12:33] LABS: MICROALB/CRT, RATIO <2 mg/g creat (0-29)
[2021-02-03 17:59] LABS: C-PEPTIDE, SERUM 3.2 ng/mL (1.1-4.4)
== END 2021-02-01 23:59 | disposition home or self-care (01) ==
LOC: LAB 13:33
PROVIDERS: ATTEND Dietitian, Registered
DX: E11.65 Type 2 diabetes mellitus with hyperglycemia (principal); E78.00 Pure hypercholesterolemia, unspecified; E55.9 Vitamin D deficiency, unspecified
CPT/HCPCS: 36415; 80053; 80061; 82043; 82306; 82570; 83036; 84681; 85025

== ENCOUNTER 2021-02-13 07:32 | Day surgery (SDC) | payer BC, OTHER ==
[~2021-02-13] VITALS: Ht 190.5 cm; Wt 104.5 kg
[2021-02-13 07:50] VITALS: BP 130/90
[2021-02-13] MEDS ORDERED: fentaNYL/PF 50MCG/1 ML 2ML syringe ONE (08:21)
[2021-02-13] MEDS ORDERED: MIDAZolam 1 MG/ML 5ML VIAL ONE (08:22)
[2021-02-13 09:39] VITALS: BP 126/71
[2021-02-13 09:49] VITALS: BP 130/70
[2021-02-13 10:10] VITALS: BP 125/58
== END 2021-02-13 10:14 | disposition home or self-care (01) ==
LOC: GI LAB 07:32
PROVIDERS: ATTEND Internal Medicine Gastroenterology
DX: Z12.11 Encounter for screening for malignant neoplasm of colon (principal); K64.8 Other hemorrhoids; I10 Essential (primary) hypertension; E11.9 Type 2 diabetes mellitus without complications; Z79.4 Long term (current) use of insulin; Z79.899 Other long term (current) drug therapy; Z86.010 Personal history of colon polyps
CPT/HCPCS: 45378; 82948; 99152; J2250; J3010; J7040; Z7512; A4620

== ENCOUNTER 2021-04-24 07:49 | Day surgery (SDC) | payer BC, OTHER ==
[~2021-04-24] VITALS: Ht 190.5 cm; Wt 113.6 kg
[~2021-04-24 07:49] MED LIST changes: -KETO10TA2 PO; -ONDA4TAB6 PO
[2021-04-24] MEDS ORDERED: fentaNYL/PF 50MCG/1 ML 2ML syringe ONE (07:56)
[2021-04-24] MEDS ORDERED: MIDAZolam 1 MG/ML 5ML VIAL ONE (07:57)
[2021-04-24 08:00] VITALS: BP 110/82
[2021-04-24 10:27] VITALS: BP 108/71
[2021-04-24 10:37] VITALS: BP 114/73
[2021-04-24 10:47] VITALS: BP 109/72
[2021-04-24 10:57] VITALS: BP 105/54
== END 2021-04-24 10:10 | disposition home or self-care (01) ==
LOC: GI LAB 07:49
PROVIDERS: ATTEND Internal Medicine Gastroenterology
DX: Z12.11 Encounter for screening for malignant neoplasm of colon (principal); D12.3 Benign neoplasm of transverse colon; K57.30 Diverticulosis of large intestine without perforation or abscess without bleeding; K64.8 Other hemorrhoids; Z86.010 Personal history of colon polyps; I10 Essential (primary) hypertension; E11.9 Type 2 diabetes mellitus without complications; Z79.899 Other long term (current) drug therapy; Z79.4 Long term (current) use of insulin
CPT/HCPCS: 45380; 99152; 99153; J2250; J3010; J7040; Z7512; A4620

== ENCOUNTER 2021-07-08 08:12 | Emergency (ER) | payer BC, OTHER ==
[~2021-07-08] VITALS: Ht 190.5 cm; Wt 109.1 kg
[2021-07-08 08:14] VITALS: BP 127/72
[2021-07-08] MEDS ORDERED: CEPH-585 PO (08:39)
[2021-07-08] MEDS ORDERED: LIDOcaine 1% 30ml preserv. free vial IJ ONE (08:40)
[2021-07-08] MEDS ORDERED: TETanus/Pertussis (Acell)/Diphther VAC/PF (Tdap-Adult) 0.5ml syringe IMVAC ONE (08:40)
[2021-07-08] MEDS ORDERED: cephalexin 250mg capsule PO ONE (08:40)
== END 2021-07-08 09:18 | disposition home or self-care (01) ==
LOC: ER 08:13 → EEVIPCON 08:13 → ER 09:18
DX: S90.852A Superficial foreign body, left foot, initial encounter (principal); E78.00 Pure hypercholesterolemia, unspecified; I10 Essential (primary) hypertension; E11.9 Type 2 diabetes mellitus without complications; Z79.4 Long term (current) use of insulin; Z79.2 Long term (current) use of antibiotics; Z20.3 Contact with and (suspected) exposure to rabies; Z79.899 Other long term (current) drug therapy; X58.XXXA Exposure to other specified factors, initial encounter; Y93.89 Activity, other specified; Y92.89 Other specified places as the place of occurrence of the external cause; Y99.8 Other external cause status
CPT/HCPCS: 10120; 90471; 90715; 99284; 99285

== ENCOUNTER 2021-11-15 10:24 | Outpatient (CLI) | payer BC, OTHER ==
[~2021-11-15 10:24] MED LIST changes: +CEPH-585 PO
[2021-11-15 11:16] LABS: ALANINE AMINOTRANSFERASE 24 U/L (12-78); ALBUMIN 3.9 G/DL (3.4-5.0); ALBUMIN/GLOBULIN RATIO 1.1 (1.1-1.5); ALKALINE PHOSPHATASE 70 IU/L (46-116); ANION GAP 9 (8-16); ASPARTATE AMINO TRANSFERASE 21 U/L (10-37); BILIRUBIN,TOTAL 0.8 MG/DL (0.1-1.0); BLOOD UREA NITROGEN 18 MG/DL (7-18); BUN/CREATININE RATIO 13.1 (5.4-32.0); CALCIUM 9.3 MG/DL (8.5-10.1); CHLORIDE 107 MMOL/L (99-107); CHOL/HDL RATIO 3.8 (0.00-4.99); CHOLESTEROL 142 MG/DL (0-200); CREATININE 1.37 MG/DL (0.60-1.10); GLUCOSE 104 MG/DL (70-104); HDL CHOLESTEROL 37 MG/DL (35-60); LDL CHOLESTEROL 75 MG/DL (50-100); POTASSIUM 4.3 MMOL/L (3.5-5.1); SODIUM 142 MMOL/L (135-145); TOTAL CARBON DIOXIDE 26.5 MMOL/L (24-32); TOTAL PROTEIN 7.4 G/DL (6.4-8.2); TRIGLYCERIDES 179 MG/DL (20-135); eGFR 52 ML/MIN
[2021-11-15 11:40] LABS: HEMOGLOBIN A1C 6.3 % (4.5-6.2)
== END 2021-11-15 23:59 | disposition home or self-care (01) ==
LOC: LAB 10:24
PROVIDERS: ATTEND Dietitian, Registered
DX: E11.8 Type 2 diabetes mellitus with unspecified complications (principal); E55.9 Vitamin D deficiency, unspecified; E78.5 Hyperlipidemia, unspecified; G62.9 Polyneuropathy, unspecified
CPT/HCPCS: 36415; 80053; 80061; 82306; 83036

== ENCOUNTER 2022-02-20 09:13 | Emergency (ER) | payer BC, OTHER ==
[~2022-02-20] VITALS: Ht 190.5 cm; Wt 113.6 kg
[2022-02-20 09:37] VITALS: BP 102/69
[2022-02-20 09:55] LABS: BASOPHILS % (AUTO) 0.5 % (0-1); EOSINOPHILS # (AUTO) 0.1 X10'3 (0-0.9); EOSINOPHILS % (AUTO) 1.6 % (0-6); HEMATOCRIT 45.1 % (42.0-52.0); HEMOGLOBIN 15.1 g/dl (14.0-17.9); LYMPHOCYTES # (AUTO) 0.3 X10'3 (1.1-4.8); LYMPHOCYTES % (AUTO) 3.8 % (21-51); MEAN CORPUSCULAR HEMOGLOBIN 30.7 PG (27.0-31.0); MEAN CORPUSCULAR HGB CONC 33.4 g/dL (33.0-36.5); MEAN CORPUSCULAR VOLUME 91.9 FL (78-98); MEAN PLATELET VOLUME 8.1 FL (7.4-10.4); MONOCYTES # (AUTO) 0.8 X10'3 (0-0.9); MONOCYTES % (AUTO) 12.4 % (2-12); NEUTROPHILS # (AUTO) 5.5 X10'3 (1.8-7.7); NEUTROPHILS % (AUTO) 81.7 % (42-75); PLATELET COUNT 180 X10'3 (140-440); RED BLOOD COUNT 4.91 X10'6 (4.70-6.10); RED CELL DISTRIBUTION WIDTH 12.9 % (11.5-14.5); WHITE BLOOD COUNT 6.8 X10'3 (4.5-11.0)
[2022-02-20 10:09] LABS: ALANINE AMINOTRANSFERASE 45 U/L (12-78); ALBUMIN 3.8 G/DL (3.4-5.0); ALBUMIN/GLOBULIN RATIO 1.1 (1.1-1.5); ALKALINE PHOSPHATASE 73 IU/L (46-116); ANION GAP 9 (8-16); ASPARTATE AMINO TRANSFERASE 32 U/L (10-37); BILIRUBIN,TOTAL 0.6 MG/DL (0.1-1.0); BLOOD UREA NITROGEN 19 MG/DL (7-18); BUN/CREATININE RATIO 15.3 (5.4-32.0); CALCIUM 9.2 MG/DL (8.5-10.1); CHLORIDE 103 MMOL/L (99-107); CREATININE 1.24 MG/DL (0.60-1.10); GLUCOSE 178 MG/DL (70-104); POTASSIUM 4.3 MMOL/L (3.5-5.1); SODIUM 137 MMOL/L (135-145); TOTAL CARBON DIOXIDE 25.2 MMOL/L (24-32); TOTAL PROTEIN 7.2 G/DL (6.4-8.2); eGFR 59 ML/MIN
[2022-02-20] MEDS ORDERED: ondansetron 4mg rapidly disintigrating tab PO ONE (13:40)
[2022-02-20] MEDS ORDERED: ONDA4TAB12 PO (15:44)
[2022-02-20] MEDS ORDERED: TAM75C PO (15:44)
== END 2022-02-20 16:26 | disposition home or self-care (01) ==
LOC: ER 09:14
DX: R51.9 Headache, unspecified (principal); Z20.822 Contact with and (suspected) exposure to COVID-19; H53.149 Visual discomfort, unspecified; J10.1 Influenza due to other identified influenza virus with other respiratory manifestations
CPT/HCPCS: 36415; 71046; 80053; 83605; 83880; 85025; 87040; 87502; 87503; 87635; 99284; C9803

== ENCOUNTER 2022-03-28 08:00 | Emergency (ER) | payer BC, OTHER ==
[~2022-03-28] VITALS: Ht 190.5 cm; Wt 113.6 kg
[~2022-03-28 08:00] MED LIST changes: +ONDA4TAB12 PO
[2022-03-28 08:20] VITALS: BP 130/104
[2022-03-28] MEDS ORDERED: DICL20GE TOP (10:25)
== END 2022-03-28 10:31 | disposition home or self-care (01) ==
LOC: ER 08:00
DX: M75.52 Bursitis of left shoulder (principal); M25.512 Pain in left shoulder; E78.00 Pure hypercholesterolemia, unspecified; I10 Essential (primary) hypertension; E11.9 Type 2 diabetes mellitus without complications; Z79.2 Long term (current) use of antibiotics; Z79.899 Other long term (current) drug therapy
CPT/HCPCS: 99282; 99283

== ENCOUNTER 2022-06-08 10:10 | Outpatient (CLI) | payer BC, OTHER ==
[~2022-06-08 10:10] MED LIST changes: +DICL20GE TOP
[2022-06-08 11:16] LABS: HEMOGLOBIN A1C 7.3 % (4.5-6.2)
[2022-06-08 11:21] LABS: ALANINE AMINOTRANSFERASE 45 U/L (12-78); ALBUMIN 3.9 G/DL (3.4-5.0); ALBUMIN/GLOBULIN RATIO 1.2 (1.1-1.5); ALKALINE PHOSPHATASE 72 IU/L (46-116); ANION GAP 8 (8-16); ASPARTATE AMINO TRANSFERASE 27 U/L (10-37); BILIRUBIN,TOTAL 0.5 MG/DL (0.1-1.0); BLOOD UREA NITROGEN 23 MG/DL (7-18); BUN/CREATININE RATIO 21.5 (5.4-32.0); CALCIUM 9.1 MG/DL (8.5-10.1); CHLORIDE 108 MMOL/L (99-107); CHOL/HDL RATIO 3.4 (0.00-4.99); CHOLESTEROL 164 MG/DL (0-200); CREATININE 1.07 MG/DL (0.60-1.10); GLUCOSE 142 MG/DL (70-104); HDL CHOLESTEROL 48 MG/DL (35-60); LDL CHOLESTEROL 97 MG/DL (50-100); PHOSPHORUS 3.4 MG/DL (2.3-4.5); POTASSIUM 4.6 MMOL/L (3.5-5.1); SODIUM 140 MMOL/L (135-145); TOTAL CARBON DIOXIDE 24.2 MMOL/L (24-32); TOTAL PROTEIN 7.1 G/DL (6.4-8.2); TRIGLYCERIDES 162 MG/DL (20-135); eGFR 70 ML/MIN
[2022-06-08 11:25] LABS: BILIRUBIN,DIRECT 0.1 MG/DL (0-0.3)
[2022-06-09 15:46] LABS: MICROALB/CRT, RATIO <2 mg/g creat (0-29)
== END 2022-06-08 23:59 | disposition home or self-care (01) ==
LOC: LAB 10:10
PROVIDERS: ATTEND Dietitian, Registered
DX: E78.00 Pure hypercholesterolemia, unspecified (principal); E11.8 Type 2 diabetes mellitus with unspecified complications; I10 Essential (primary) hypertension; E55.9 Vitamin D deficiency, unspecified
CPT/HCPCS: 36415; 80061; 80069; 80076; 82043; 82306; 82570; 83036

== ENCOUNTER 2022-09-20 09:41 | Outpatient (CLI) | payer BC, OTHER ==
[~2022-09-20 09:41] MED LIST changes: -CEPH-585 PO
[2022-09-20 11:34] LABS: ALANINE AMINOTRANSFERASE 45 U/L (12-78); ALBUMIN/GLOBULIN RATIO 1.3 (1.1-1.5); ALKALINE PHOSPHATASE 77 IU/L (46-116); ANION GAP 10 (8-16); ASPARTATE AMINO TRANSFERASE 23 U/L (10-37); BILIRUBIN,DIRECT 0.1 MG/DL (0-0.3); BILIRUBIN,TOTAL 0.5 MG/DL (0.1-1.0); BLOOD UREA NITROGEN 22 MG/DL (7-18); BUN/CREATININE RATIO 17.7 (10.0-20.0); CALCIUM 9.4 MG/DL (8.5-10.1); CHLORIDE 106 MMOL/L (99-107); CHOL/HDL RATIO 3.3 (0.00-4.99); CHOLESTEROL 124 MG/DL (0-200); CREATININE 1.24 MG/DL (0.60-1.10); GLUCOSE 133 MG/DL (70-104); HDL CHOLESTEROL 38 MG/DL (35-60); LDL CHOLESTEROL 66 MG/DL (50-100); PHOSPHORUS 3.8 MG/DL (2.3-4.5); POTASSIUM 4.4 MMOL/L (3.5-5.1); SODIUM 140 MMOL/L (135-145); TOTAL CARBON DIOXIDE 23.8 MMOL/L (24-32); TOTAL PROTEIN 7.2 G/DL (6.4-8.2); TRIGLYCERIDES 215 MG/DL (20-135); eGFR 59 ML/MIN
[2022-09-20 11:49] LABS: HEMOGLOBIN A1C 6.7 % (4.5-6.2)
== END 2022-09-20 23:59 | disposition home or self-care (01) ==
LOC: LAB 09:41
PROVIDERS: ATTEND Dietitian, Registered
DX: E11.8 Type 2 diabetes mellitus with unspecified complications (principal); E78.00 Pure hypercholesterolemia, unspecified; I10 Essential (primary) hypertension
CPT/HCPCS: 36415; 80061; 80069; 80076; 82043; 82570; 83036

== ENCOUNTER 2023-01-09 09:20 | Outpatient (CLI) | payer BC, OTHER ==
[2023-01-09 10:19] LABS: HEMOGLOBIN A1C 6.7 % (4.5-6.2)
[2023-01-09 10:34] LABS: ALANINE AMINOTRANSFERASE 43 U/L (12-78); ALBUMIN 4.1 G/DL (3.4-5.0); ALBUMIN/GLOBULIN RATIO 1.2 (1.1-1.5); ALKALINE PHOSPHATASE 66 IU/L (46-116); ANION GAP 7 (8-16); ASPARTATE AMINO TRANSFERASE 25 U/L (10-37); BILIRUBIN,DIRECT 0.2 MG/DL (0-0.3); BILIRUBIN,TOTAL 0.7 MG/DL (0.1-1.0); BLOOD UREA NITROGEN 23 MG/DL (7-18); BUN/CREATININE RATIO 18.1 (10.0-20.0); CALCIUM 10.1 MG/DL (8.5-10.1); CHLORIDE 105 MMOL/L (99-107); CHOL/HDL RATIO 3.6 (0.00-4.99); CHOLESTEROL 150 MG/DL (0-200); CREATININE 1.27 MG/DL (0.60-1.10); GLUCOSE 130 MG/DL (70-104); HDL CHOLESTEROL 42 MG/DL (35-60); LDL CHOLESTEROL 84 MG/DL (50-100); POTASSIUM 4.7 MMOL/L (3.5-5.1); SODIUM 139 MMOL/L (135-145); TOTAL CARBON DIOXIDE 27.5 MMOL/L (24-32); TOTAL PROTEIN 7.6 G/DL (6.4-8.2); TRIGLYCERIDES 148 MG/DL (20-135); eGFR 57 ML/MIN
[2023-01-10 16:53] LABS: CREATININE, URINE 200.4 mg/dL (Not Estab.); MICROALB/CRT, RATIO 3 mg/g creat (0-29); MICROALBUMIN,U,RANDOM 5.1 ug/mL (Not Estab.); VITAMIN D, 25-HYDROXY 25.2 ng/mL (30.0-100.0)
== END 2023-01-09 23:59 | disposition home or self-care (01) ==
LOC: LAB 09:20
PROVIDERS: ATTEND Physician Assistant
DX: E11.8 Type 2 diabetes mellitus with unspecified complications (principal); I10 Essential (primary) hypertension; E78.5 Hyperlipidemia, unspecified; E55.9 Vitamin D deficiency, unspecified
CPT/HCPCS: 36415; 80061; 80069; 80076; 82043; 82306; 82570; 83036

== ENCOUNTER 2023-01-25 13:20 | Outpatient (CLI) | payer BC, OTHER | END 2023-01-25 23:59 | disposition home or self-care (01) | LOC: LAB 13:20 | PROVIDERS: ATTEND Family Medicine | DX: Z12.5 Encounter for screening for malignant neoplasm of prostate (principal) | CPT/HCPCS: 36415; 84153 ==

== ENCOUNTER → 2023-02-25 | Outpatient (CLI) | payer BC, OTHER ==
[2023-02-26 12:31] LABS: PROSTATE SPECIFIC AG, SERUM 3.3 ng/mL (0.0-4.0); PSA, FREE 1.09 ng/mL
== END | disposition home or self-care (01) ==
LOC: LAB 09:57
PROVIDERS: ATTEND Physician Assistant
DX: R97.20 Elevated prostate specific antigen [PSA] (principal)
CPT/HCPCS: 36415; 84153; 84154

== ENCOUNTER 2023-08-15 22:39 | Emergency (ER) | payer BC, OTHER ==
[~2023-08-15] VITALS: Ht 190.5 cm; Wt 113.6 kg
[2023-08-15 22:51] VITALS: BP 132/87; PULSE 84; RESP 19; TEMP 97.8; O2SAT 95
[2023-08-15] MEDS ORDERED: TETRAcaine 0.5% ophthalmic drops 15ml EACHEYE ONE (23:35)
[2023-08-16] MEDS: TETRACAINE 0.5% 4 ML OPHTHALMIC DROPS EACHEYE ONE (00:13)
[2023-08-16] MEDS ORDERED: GLYC15DR4 LEFTEYE (00:25)
== END 2023-08-16 00:54 | disposition home or self-care (01) ==
LOC: ER 22:41
DX: H57.12 Ocular pain, left eye (principal); E78.00 Pure hypercholesterolemia, unspecified; I10 Essential (primary) hypertension; E11.9 Type 2 diabetes mellitus without complications; Z79.84 Long term (current) use of oral hypoglycemic drugs; Z79.1 Long term (current) use of non-steroidal anti-inflammatories (NSAID); Z79.899 Other long term (current) drug therapy
CPT/HCPCS: 99283

== ENCOUNTER 2024-06-11 09:50 | Outpatient (CLI) | payer BC, MEDICARE, OTHER ==
[~2024-06-11 09:50] MED LIST changes: +GLYC15DR4 LEFTEYE; +ONDA-243 PO; -ONDA4TAB12 PO
== END 2024-06-11 23:59 | disposition home or self-care (01) ==
LOC: LAB 09:50
PROVIDERS: ATTEND Physician Assistant
DX: M54.2 Cervicalgia (principal); R51.9 Headache, unspecified; Z12.5 Encounter for screening for malignant neoplasm of prostate; G89.29 Other chronic pain
CPT/HCPCS: 36415; 72050; 84153; 84154

== ENCOUNTER 2024-08-18 08:49 | Day surgery (SDC) | payer BC, MEDICARE, OTHER ==
[~2024-08-18] VITALS: Ht 190.5 cm; Wt 111.5 kg
[2024-08-18] VITALS (10 sets, daily range): BP systolic 102–127; BP diastolic 66–88; PULSE 57–78; RESP 14–16; O2SAT 93–97
[~2024-08-18 08:49] MED LIST changes: -DICL20GE TOP; +EMPA10TA PO; -GLYC15DR4 LEFTEYE; -INSU100V9 SQ; -LISI30TA4 PO; +LISINOPRIL 2.5 MG PO; -ONDA-243 PO; +SEMA1PEN3 SUBCUT; +TAMS-55 PO
[2024-08-18] MEDS ORDERED: fentaNYL/PF 50MCG/1 ML 2ML syringe ONE (10:34)
[2024-08-18] MEDS ORDERED: MIDAZolam 1 MG/ML 5ML VIAL ONE (10:34)
[2024-08-18] MEDS ORDERED: simethicone 40mg/0.6ml oral drops 30ml ONE (10:40)
--- NOTE | 2024-08-19 19:08 | PATHOLOGY REPORT ---
[facility] [address] [place] [address] SURGICAL PATHOLOGY REPORT CaseNumber: [id number] Surgeon:Kathe Zelaya M.D. CLINICAL INFORMATION CLINICAL INFORMATION: High risk colon cancer surveillance. Personal history of colon polyps. DIAGNOSIS DIAGNOSIS: COLON, RECTUM; BIOPSY - HYPERPLASTIC POLYP. MICROSCOPIC DESCRIPTION MICROSCOPIC DESCRIPTION: A single slide of the rectal biopsy is reviewed. Present is a hyperplastic p olyp. The straight glands are lined by tall, plump mucin cells which form a "saw-tooth" margin. There is no adenomatous or villous transformation, atypia, or malignancy. (st) GROSS DESCRIPTION GROSS DESCRIPTION: Received in a container of formalin labeled with the patient's name, number, and " rectal polyp" is a 0.4 x 0.2 x 0.1 cm piece of braxton tissue. The specimen is entirely submitted as A1. The time at which the specimen was removed was 1100. The time at which the specimen was placed in for tessy was 1101. Electronically signed by: Gin Barragan M.D. 08/19/2024 6:30:00 PM
== END 2024-08-18 11:45 | disposition home or self-care (01) ==
LOC: GI LAB 08:49
PROVIDERS: ATTEND Internal Medicine Gastroenterology
DX: Z09 Encounter for follow-up examination after completed treatment for conditions other than malignant neoplasm (principal); K62.1 Rectal polyp; K64.8 Other hemorrhoids; Z79.899 Other long term (current) drug therapy
CPT/HCPCS: 45385; 99152; J2250; J3010; J7030; Z7512; C1889

== ENCOUNTER 2024-11-27 22:57 | Emergency (ER) | payer BC, MEDICARE, OTHER ==
[~2024-11-27] VITALS: Ht 190.5 cm; Wt 113.0 kg
[2024-11-27 22:59] VITALS: TEMP 97.2
[2024-11-27 23:04] VITALS: BP 140/90; PULSE 75; RESP 16; O2SAT 98
--- NOTE | 2024-11-27 23:21 | Physician Documentation ---
History of Present Illness ~ General Chief Complaint: See Chief Complaint Stated Complaint: MOLE ON NECK Time Seen by MD: 23:04 Primary Medical Doctor: Denis History of Present Illness Initial Comments Patient is seen today with complaints of lesion on the back of his neck. He states his primary care told him to come in here and get it cut off and biops ied. Patient states it has actually gotten quite a bit smaller states that it was bigger in his now smaller by a good amount. He has no other concern or complaint at this time. Medication Reconciliation Allergies: Coded Allergies: No Known Allergies (Unverified , 11/27/24) Scheduled Empagliflozin (Jardiance), Unknown Dose PO PRN, (Reported) Metformin Hcl (Metformin Hcl), 1 TAB PO Q12H, (Reported) Multivitamins (Multivitamins), 1 TABLET PO DAILY, (Reported) Semaglutide (Ozempic), 1 MG SUBCUT Q7D, (Reported) Simvastatin* (Zocor*), 1 TABLET PO HS, (Reported) Tamsulosin Hcl* (Flomax*), 1 CAP PO PRN, (Reported) [Lisinopril 2.5 Mg], 1 CAP PO DAILY, (Reported) Past Medical History Past Medical History: High Cholesterol, Hypertension, Diabetes Past Surgical History: no surgical history Alcohol Use: None Drug Use: none Lives with: Family Lives In: Home Occupation: employed Review of Systems Constitutional: Denies: chills, fever, weakness Eyes: Denies: pain, blurred vision ENT: Denies: ear pain, nose pain, throat pain, mouth pain Respiratory: Denies: cough, shortness of breath Cardiovascular: Denies: chest pain, palpitations Gastrointestinal: Denies: abdominal pain, nausea, vomiting Genitourinary: Denies: burning, dysuria Male Genitalia: Denies: penile discharge, testicular pain Neurological: Denies: headache, dizziness Musculoskeletal: Denies: pain, swelling Integumentary: Denies: rash, lesions Allergic/Immunologic: Denies: hives, itching Hematologic/Lymphatic: Denies: no symptoms reported Psychiatric: Denies: depression, anxiety Physical Exam Physical Exam Vital Signs: Temperature: 97.2, Source: Oral, Heart Rate: 75, Respiratory Rate: 16, BP: 140/90, Pulse Oximetry: 98, Weight: 113.000 Oxygen Flow Rate: 0 Physical Exam General: Awake and Alert, no acute distress. HEENT: Conjunctiva pink, Sclera clear, Mucus Membranes moist. Neck: Supple without masses and tenderness. Extremities: No cyanosis,clubbing or edema. Skin: On exam the lesion in question of the back of the neck of the patient is clearly a fluctuant mass/blood blister and does not appear to be cancerous at all. Knee lesion measures a proximally 8 mm in diameter. Has a very thin skin surface in his clearly filled with blood underneath. Progress Results/Orders Results/Orders Vital Signs 11/27/24 11/27/24 22:59 23:04 Temp 97.2 Pulse 75 75 Resp 16 16 B/P (MAP) 140/90 140/90 Pulse Ox 98 98 O2 Flow Rate 0 Medical Decision Making Findings Patient is seen today with complaints of lesion on the back of his neck. He states his primary care told him to come in here and get it cut off and biopsied. Patient states it has actually gotten quite a bit smaller states that it was bigger in his now smaller by a good amount. He has no other concern or complaint at this time. I discussed with the patient that I do not want to biopsy this lesion as it is a blood blister. Patient voiced understanding. Patient will follow up with primary care in 1-2 weeks for re-evaluation. Return to ED with any worsening, concerning or changing symptoms. Departure Disposition: 01 HOME / SELF CARE / HOMELESS Impression: Primary Impression: Blood blister Condition: Stable Additional Instructions: I discussed with the patient that I do not want to biopsy this lesion as it is a blood blister. Patient voiced understanding. Patient will follow up with primary care in 1-2 weeks for re-evaluation. Return to ED with any worsening, concerning or changing symptoms. Referrals: NO PRIMARY CARE PROVIDER (PCP) Signature Scribe Signature: No scribe Attestation: No scribe SOFYA DIAS PAC Nov 27, 2024 23:21
== END 2024-11-27 23:31 | disposition home or self-care (01) ==
LOC: ER 22:57
DX: S10.82XA Blister (nonthermal) of other specified part of neck, initial encounter (principal); I10 Essential (primary) hypertension; E78.00 Pure hypercholesterolemia, unspecified; E11.9 Type 2 diabetes mellitus without complications; Z79.899 Other long term (current) drug therapy; X58.XXXA Exposure to other specified factors, initial encounter; Y93.89 Activity, other specified; Y92.89 Other specified places as the place of occurrence of the external cause; Y99.8 Other external cause status
CPT/HCPCS: 99282